=== PATIENT | female | born 1945 | race Caucasian/White ===

== ENCOUNTER 2020-08-29 12:23 | Emergency (ER) | payer MEDICARE ==
[~2020-08-29] VITALS: Ht 165.1 cm; Wt 79.5 kg
[2020-08-29 12:39] VITALS: BP 138/71
== END 2020-08-29 13:54 | disposition left against medical advice (07) ==
LOC: EMS 12:25
DX: R05 Cough (principal); Z53.21 Procedure and treatment not carried out due to patient leaving prior to being seen by health care provider